=== PATIENT | female | born 1980 | race Caucasian/White ===

== ENCOUNTER 2016-10-02 20:33 | Emergency (ER) | payer BC ==
--- NOTE | 2016-10-03 00:11 | ER ---
ADMIT: 10/02/2016 RM/LOC: ER [facility] MR#: [id number] [facility] [address] [place], [place] [id number] VAHID BRIONES [address] [address] Emergency Room Report SEX: F AGE: 35 : 1980 DATE: 10/02/2016 TIME: 3 hours. Please refer to my T-sheet for complete H and P. HISTORY OF PRESENT ILLNESS: The patient comes in with a cough for a week and a sore throat. She has been on an antibiotic for the last 3 to 4 days, has not helped. She smokes a pack of cigarettes a day. She has been under a little more stress. PHYSICAL EXAMINATION: VITAL SIGNS: Blood pressure 146/86, pulse 79, respirations 16, temp 97.8, sat 100%. GENERAL: No acute distress. HEENT: She has rhinorrhea. Throat slightly erythematous. LUNGS: Coarse with a little bit of wheezes. HEART: Regular. ABDOMEN: Soft. SKIN: No rash. EMERGENCY DEPARTMENT COURSE: We gave her 2 puffs of an albuterol inhaler. She will go home with that. I had a long discussion. She was ready for discharge. ASSESSMENT: 1. Bronchitis, acute, is in the last week. 2. Nicotine abuse. PLAN: Stop smoking. Return if worse. Albuterol q.4 hours. Continue antibiotic and medications. Mason Klein MD/ nawaf JOB #: [id number] CC: Mason Klein MD, Attending Physician Verena Johnson MD, Family Physician
== END 2016-10-02 21:20 | disposition home or self-care (01) ==
LOC: ER 20:33
DX: J20.9 Acute bronchitis, unspecified (principal); E11.9 Type 2 diabetes mellitus without complications; E03.9 Hypothyroidism, unspecified; F32.9 Major depressive disorder, single episode, unspecified; F17.210 Nicotine dependence, cigarettes, uncomplicated; Z79.4 Long term (current) use of insulin; Z79.899 Other long term (current) drug therapy

== ENCOUNTER → 2016-10-20 | Outpatient (CLI) | payer BC | END | disposition home or self-care (01) | LOC: RAD.S 14:21 | DX: N63 Unspecified lump in breast (principal) ==